=== PATIENT | male | born 1940 | race Caucasian/White ===

== ENCOUNTER 2017-09-25 11:40 | Day surgery (SDC) | payer MEDICARE, BC ==
[2017-09-24 08:17] VITALS: BMI 27.6
[2017-09-25 12:56] LABS: #Eosinphils 0.2 thou/uL (0.0-0.7); #Lymphocytes 0.8 thou/uL (1.20-3.40); #Monocytes 0.5 thou/uL (0.11-0.59); #Neutrophils 4.3 thou/uL (1.40-6.50); %Basophils 0.7 % (0.0-1.0); %Eosinophils 3.1 % (0.0-10.0); %Monocytes 8.1 % (0.0-10.0); Hematocrit 32.4 % (42.0-52.0); Mean Platelet Volume 8.5 fL (7.4-10.4); Red Blood Cell (RBC) Count 3.43 mill/uL (4.70-6.10); White Blood Cell (WBC) Count 5.8 thou/uL (4.8-10.8)
[2017-09-25 13:05] LABS: PTT 38.4 SEC (22.9-36.1)
[2017-09-25 13:18] LABS: Anion Gap 15 mmol/L (10-20); BUN (Urea Nitrogen) 30 mg/dL (8.4-25.7); Calc. Creatinine Clearance 69 mL/min (70-130); Calcium 10.2 mg/dL (7.8-10.44); Carbon Dioxide 22 mmol/L (23-31); Chloride 108 mmol/L (98-107); Estimated GFR-MDRD 64
[2017-09-25] MEDS ORDERED: Diprivan 20 ML ONE (14:02)
--- NOTE | 2017-09-25 14:47 | OP ---
DATE OF PROCEDURE: 09/25/2017 INTERNAL CARDIOVERSION REPORT REASON FOR PROCEDURE: Mr. Dupree is a 77-year-old man with history of CHF and nonischemic cardiomy opathy, biventricular ICD in place, history of atrial flutter, status post ablation in the past, now he is here with atypical atrial flutter and paroxysmal atrial fibrillation sustained since mid b er. He is well anticoagulated with Eliquis. DESCRIPTION OF PROCEDURE: The patient received deep sedation by Anesthesia specialist. After adequa te level of sedation achieved, a synchronized 35 joule internal defibrillator device delivered shock promptly converted the patient back to sinus rhythm. CONCLUSION: Successful cardioversion. PLAN: We will turn atrial ATP therapies on and continue anticoagulation. He has routine postop chec k in 6 weeks.
[2017-09-25] MEDS ORDERED: Propofol 200 MG/20 ML VIAL ONE (16:33)
--- NOTE | 2017-09-25 18:57 | OP ---
DATE OF SERVICE: 09/25/2017 This is an ICD interrogation reprogramming report. REASON FOR PROCEDURE: Mr. Dupree is a 77-year-old man with history of CHF and nonischemic cardiomy opathy, biventricular ICD in place, who underwent an ICD interrogated pre and post-cardioversion and reprogramming is made as below. Interrogation reveals a [employer] Viva XT [employer] biventricular ICD with battery longevity couple of year s, the lead parameters are adequate. The atrial sensing 1.9, RV sensing 6.6 millivolts. Atrial fibr illation seems to be present since mid July. Optimal measurement at baseline, ventricular rates are reasonably controlled. The patient is 89% RV paced. PROCEDURE: The patient received 35 joule shock as dictated separately. Following that, no change in ICD parameters are noted. Reprogramming of the ICD was performed turning atrial tachycardia detection and therapies on ATPs. CONCLUSION: 1. Adequate functioning biventricular ICD pre and post-cardioversion. 2. Atrial antitachycardia pacing therapies program done.
--- NOTE | 2017-09-26 07:31 | EKG ---
Test Reason : Blood Pressure : / mmHG Vent. Rate : 073 BPM Atrial Rate : 075 BPM P-R Int : 000 ms QRS Dur : 144 ms QT Int : 440 ms P-R-T Axes : 000 -15 077 degrees QTc Int : 484 ms Electronic ventricular pacemaker When compared with ECG of 16-AUG-2016 09:02, Vent. rate has decreased BY [address] Kandi HERRON ([id number]) on 09/26/2017 7:30:35 AM Referred By: [facility] Confirmed By:DR. Kandi HERRON
== END 2017-09-25 15:05 | disposition home or self-care (01) ==
LOC: CCL 11:40
PROVIDERS: ATTEND Internal Medicine Cardiovascular Disease
DX: I48.0 Paroxysmal atrial fibrillation (principal); I42.8 Other cardiomyopathies; I48.92 Unspecified atrial flutter; E11.9 Type 2 diabetes mellitus without complications; I50.20 Unspecified systolic (congestive) heart failure; Z79.01 Long term (current) use of anticoagulants; Z79.82 Long term (current) use of aspirin; Z79.84 Long term (current) use of oral hypoglycemic drugs; Z79.899 Other long term (current) drug therapy; Z96.652 Presence of left artificial knee joint; Z96.649 Presence of unspecified artificial hip joint; Z95.810 Presence of automatic (implantable) cardiac defibrillator; Z98.890 Other specified postprocedural states
CPT/HCPCS: 80048; 85025; 85610; 85730; 92960; 93005; 93010; J2704

== ENCOUNTER 2019-02-04 08:03 | Outpatient (CLI) | payer MEDICARE, BC ==
--- NOTE | 2019-02-04 10:23 | CT ---
CT of the abdomen and pelvis with and without IV contrast INDICATION: Recurrent urinary tract infections TECHNIQUE: Noncontrast CT of the abdomen and pelvis was performed. Postcontrast images were obtained in the nephrographic phase and delayed phase. Axial and coronal reformatted images were constructed from the raw data. FINDINGS: ABDOMEN: Liver: There is mild nonspecific intrahepatic biliary duct dilatation. The common bile duct is of nor mal caliber.. Visualized gallbladder appears within normal limits. Pancreas: Normal. Gallbladder: Normal by CT. Adrenal glands: There is a 2.8 cm nonenhancing hyperdense lesion involving the body and medial limb o f the left adrenal gland. There is an eccentric region of macroscopic fat adjacent to this lesion. Findings are suspicious for small myelolipoma that may have bled. Kidneys: There are small bilateral renal cysts. The largest cyst is seen extending exophytically off the superior pole of the right kidney measuring 1.5 cm. No solid renal lesion, hydronephrosis or renal calculus is evident. There are mild renal vascular calcifications bilaterally.. Spleen: Normal. Retroperitoneum: No pathologically enlarged lymph nodes are evident. There are mild vascular calcific ations seen involving the visualized vasculature. There are a few shotty appearing lymph nodes seen along the distal periaortic region and along the aortic bifurcations. The largest lymph node is seen distal to the aorta near the left common iliac artery measuring 8 mm. A few shotty appearing lymph nodes are seen along the iliac vasculature within the pelvis. Pelvis: Bowel: There are scattered diverticula involving the colon without evidence of active diverticulitis. There is normal appendix in the right lower quadrant of the abdomen. The visualized small bowel appears within normal limits. Renal collecting system and bladder: No gross urothelial lesion is identified. The segmentally opacif ied ureters appear within normal limits. No visible intraluminal filling defect is evident within the bladder. Reproductive structures: The prostate is enlarged measuring 5 cm. Rectum and perirectal soft tissues: Normal. 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 There is degenerative levoscoliosis of the lumbar spine. There is scattered degenerative and osteoarthritic change present. IMPRESSION: 1. No solid renal lesion, renal calculus or gross urothelial lesion identified. Bilateral renal cysts . 2. Prostate enlargement. 3. Nonspecific shotty appearing lymph nodes within the pelvis and lower abdomen. This may be reactive related to the patient's history of UTI. 4. Nonenhancing hyperdense lesion involving the left adrenal gland suspicious for adrenal hemorrhage. 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
[2019-02-04] MEDS ORDERED: ISOVUE-370 76%-LOCM 1 ML ONE (10:44)
== END 2019-02-04 08:04 | disposition home or self-care (01) ==
LOC: BICCT 08:03
PROVIDERS: ATTEND Urology
DX: N39.0 Urinary tract infection, site not specified (principal); N28.1 Cyst of kidney, acquired; N40.0 Benign prostatic hyperplasia without lower urinary tract symptoms; E27.9 Disorder of adrenal gland, unspecified
CPT/HCPCS: 74178; 82565; Q9966

== ENCOUNTER 2021-10-20 13:52 | Outpatient (CLI) | payer MEDICARE ==
[2021-10-20 15:58] LABS: Hemoglobin 9.5 g/dL (13.5-17.5); Mean Corpuscular HGB CONC 32.1 g/dL (32.0-36.0); Mean Corpuscular Hemoglobin 33.2 pg (27.0-33.0); Mean Corpuscular Volume 103.5 fl (81.2-95.1); Mean Platelet Volume 10.3 fl (7.4-10.4); Platelet Count 105 10x3/uL (150-450); Red Blood Cell (RBC) Count 2.86 10x6/uL (4.32-5.72); White Blood Cell (WBC) Count 5.8 10x3/uL (3.5-10.5)
[2021-10-20 16:17] LABS: PTT 26.5 sec (22.0-33.0); Prothrombin Time 11.4 sec (9.5-12.1)
[2021-10-20 16:19] LABS: Anion Gap 14 mmol/L (10-20); BUN (Urea Nitrogen) 80 mg/dL (8.4-25.7); Calc. Creatinine Clearance 0 mL/min (70-130); Calcium 9.3 mg/dL (7.8-10.44); Carbon Dioxide 21 mmol/L (23-31); Chloride 111 mmol/L (98-107); Glucose 116 mg/dL (83-110); Potassium 5.7 mmol/L (3.5-5.1); Sodium 140 mmol/L (136-145)
[2021-10-20 23:50] LABS: SARS-CoV-2 PCR by NAA Not Detected (NotDetected)
== END 2021-10-20 13:53 | disposition home or self-care (01) ==
LOC: LABBT 13:52
PROVIDERS: ATTEND Internal Medicine Cardiovascular Disease
DX: Z01.818 Encounter for other preprocedural examination (principal); I47.2 Ventricular tachycardia; Z20.822 Contact with and (suspected) exposure to COVID-19
CPT/HCPCS: 80048; 85027; 85610; 85730; 93005; U0003; U0005; 93010

== ENCOUNTER 2021-10-23 08:03 | Day surgery (SDC) | payer MEDICARE, BC ==
[2021-10-20 10:58] VITALS: BMI 29.3
[2021-10-23] MEDS ORDERED: PROPOFOL 20 ML ONE (11:46)
== END 2021-10-23 12:54 | disposition home or self-care (01) ==
LOC: SDC 08:03
PROVIDERS: ATTEND Internal Medicine Cardiovascular Disease
PROC: 5A2204Z Restoration of Cardiac Rhythm, Single (ICD-10-PCS; principal; 2021-10-23)
DX: I48.19 Other persistent atrial fibrillation (principal); I48.4 Atypical atrial flutter; I42.8 Other cardiomyopathies; I42.0 Dilated cardiomyopathy; I44.7 Left bundle-branch block, unspecified; I47.2 Ventricular tachycardia; E78.5 Hyperlipidemia, unspecified; I12.9 Hypertensive chronic kidney disease with stage 1 through stage 4 chronic kidney disease, or unspecified chronic kidney disease; E11.22 Type 2 diabetes mellitus with diabetic chronic kidney disease; N18.2 Chronic kidney disease, stage 2 (mild); I50.22 Chronic systolic (congestive) heart failure; M19.90 Unspecified osteoarthritis, unspecified site; M10.9 Gout, unspecified; Z79.01 Long term (current) use of anticoagulants; Z79.82 Long term (current) use of aspirin; Z79.84 Long term (current) use of oral hypoglycemic drugs; Z79.899 Other long term (current) drug therapy; Z95.810 Presence of automatic (implantable) cardiac defibrillator
CPT/HCPCS: 92960; 93005; 93010; J2704

== ENCOUNTER 2021-12-29 08:24 | Outpatient (CLI) | payer MEDICARE, BC ==
[2021-12-29] MEDS ORDERED: Iopamidol-370 76% 500 ML 1 ML ONE (12:23)
== END 2021-12-29 08:25 | disposition home or self-care (01) ==
LOC: BICCT 08:24
PROVIDERS: ATTEND Physician Assistant Medical
DX: R74.8 Abnormal levels of other serum enzymes (principal); S37.812A Contusion of adrenal gland, initial encounter; K57.90 Diverticulosis of intestine, part unspecified, without perforation or abscess without bleeding; N28.1 Cyst of kidney, acquired
CPT/HCPCS: 74170; Q9967

== ENCOUNTER 2022-01-24 08:44 | Day surgery (SDC) | payer MEDICARE, BC ==
[2022-01-22 13:58] VITALS: BMI 29.5
[2022-01-24 10:29] LABS: ALT (SGPT) Less than 7 U/L (8-55); AST (SGOT) 14 U/L (5-34); Albumin 4.1 g/dL (3.4-4.8); Alkaline Phosphatase 74 U/L (40-110); Anion Gap 13 mmol/L (10-20); BUN (Urea Nitrogen) 34 mg/dL (8.4-25.7); Bilirubin, Total 0.9 mg/dL (0.2-1.2); Calc. Creatinine Clearance 38 mL/min (70-130); Calcium 9.1 mg/dL (7.8-10.44); Carbon Dioxide 25 mmol/L (23-31); Chloride 107 mmol/L (98-107); Globulin 2.4 g/dL (2.4-3.5); Glucose 171 mg/dL (83-110); Potassium 4.3 mmol/L (3.5-5.1); Protein, Total 6.5 g/dL (5.8-8.1); Sodium 141 mmol/L (136-145)
[2022-01-24] MEDS ORDERED: PROPOFOL 20 ML ONE (13:20)
== END 2022-01-24 15:06 | disposition home or self-care (01) ==
LOC: SDC 08:44
PROVIDERS: ATTEND Internal Medicine Cardiovascular Disease
PROC: B246ZZ4 Ultrasonography of Right and Left Heart, Transesophageal (ICD-10-PCS; principal; 2022-01-24)
PROC: 5A2204Z Restoration of Cardiac Rhythm, Single (ICD-10-PCS; 2022-01-24)
DX: I48.19 Other persistent atrial fibrillation (principal); I42.0 Dilated cardiomyopathy; I34.0 Nonrheumatic mitral (valve) insufficiency; I44.7 Left bundle-branch block, unspecified; I11.0 Hypertensive heart disease with heart failure; I50.22 Chronic systolic (congestive) heart failure; I47.2 Ventricular tachycardia; E11.22 Type 2 diabetes mellitus with diabetic chronic kidney disease; N18.2 Chronic kidney disease, stage 2 (mild); E78.5 Hyperlipidemia, unspecified; M19.90 Unspecified osteoarthritis, unspecified site; I48.3 Typical atrial flutter; M10.9 Gout, unspecified; Z79.01 Long term (current) use of anticoagulants; Z79.82 Long term (current) use of aspirin; Z79.84 Long term (current) use of oral hypoglycemic drugs; Z79.899 Other long term (current) drug therapy; Z95.810 Presence of automatic (implantable) cardiac defibrillator
CPT/HCPCS: 80053; 92960; 93312; J2704

== ENCOUNTER 2023-03-12 08:26 | Inpatient (IN) | payer MEDICARE, BC ==
[2023-03-12 10:09] LABS: Anion Gap 15 mmol/L (10-20); BUN (Urea Nitrogen) 33 mg/dL (8.4-25.7); Calc. Creatinine Clearance 0 mL/min (70-130); Calcium 9.8 mg/dL (7.8-10.44); Carbon Dioxide 25 mmol/L (23-31); Chloride 104 mmol/L (98-107); Estimated GFR 36; Glucose 116 mg/dL (83-110); Potassium 3.7 mmol/L (3.5-5.1); Sodium 140 mmol/L (136-145)
[2023-03-12] MEDS ORDERED: fentaNYL PF 100 MCG/2 ML SYRINGE ONE ×2 (11:58→15:42)
[2023-03-12] MEDS ORDERED: Tobramycin Sulfate 1.2 GM VIAL ONE ×2 (12:06→12:55)
[2023-03-12] MEDS ORDERED: Vancomycin 1 GM VIAL ONE ×2 (12:06→12:55)
[2023-03-12] MEDS ORDERED: Bupivacaine PF 0.5% 30 ML VIAL ONE (12:06)
[2023-03-12] MEDS ORDERED: Albumin 5% 250 ML ONE (12:07)
[2023-03-12] MEDS ORDERED: Sodium Chloride 0.9% 100 ML ONE (12:07)
[2023-03-12] MEDS ORDERED: CEFAZOLIN 2 GM VIAL ONE (12:07)
[2023-03-12] MEDS ORDERED: Vancomycin 1 GM/200 ML (FROZEN) BAG ONE (12:07)
[2023-03-12] MEDS ORDERED: Ropivacaine 0.2% HCl/PF 20 ML ONE (12:07)
[2023-03-12] MEDS ORDERED: Phenylephrine 10 MG/ML VIAL ONE (12:08)
[2023-03-12] MEDS ORDERED: diphenhydrAMINE 50 MG/ML VIAL IVP PRN (12:15)
[2023-03-12] MEDS ORDERED: Naloxone HCl 0.4 mg/ml Vial IVP PRN (12:15)
[2023-03-12] MEDS ORDERED: Promethazine HCl 25 MG/ML VIAL IM PRN ×3 (12:15→15:06)
[2023-03-12] MEDS ORDERED: Bupivacaine 0.25% 10 ML VIAL EPIDURAL PRN (12:15)
[2023-03-12] MEDS ORDERED: Ondansetron PF 4 MG/2 ML Vial IVP PRN ×2 (12:15→14:47)
[2023-03-12] MEDS ORDERED: diphenhydrAMINE 50 MG/ML VIAL IM PRN (12:15)
[2023-03-12] MEDS ORDERED: HYDROcodone/Acetaminophen 5/325 mg Tablet PO PRN (12:15)
[2023-03-12] MEDS ORDERED: Zolpidem Tartrate 5 MG TAB PO PRN ×2 (12:15→14:47)
[2023-03-12] MEDS ORDERED: Moisturizing Cream (Eucerin) 113 GM JAR TOP PRN (12:15)
[2023-03-12] MEDS ORDERED: traMADol HCl 50 MG TAB PO PRN ×2 (12:15)
[2023-03-12] MEDS ORDERED: Naloxone HCl 0.4 mg/ml Vial IV PRN (12:15)
[2023-03-12] MEDS ORDERED: Rocuronium Bromide 10 MG/ML (10ML VIAL) ONE (12:19)
[2023-03-12] MEDS ORDERED: Lidocaine 1% PF 5 ML VIAL ONE (12:19)
[2023-03-12] MEDS ORDERED: Lidocaine 1.5% w/Epi 1:200K 30 ML VIAL (Epid Use) ONE (12:19)
[2023-03-12] MEDS ORDERED: Dexamethasone 20 MG/5 ML VIAL ONE (12:19)
[2023-03-12] MEDS ORDERED: Ondansetron PF 4 MG/2 ML Vial ONE (12:19)
[2023-03-12] MEDS ORDERED: SUGAMMADEX SODIUM 200 MG/2 ML VIAL ONE (12:53)
[2023-03-12] MEDS ORDERED: Tranexamic Acid 1,000 MG/10 ML VIAL ONE (12:55)
[2023-03-12] MEDS ORDERED: cefTRIAXone (ROCEPHIN) 1 GM VIAL ONE (12:55)
[2023-03-12] MEDS ORDERED: Vancomycin HCl 500 MG VIAL ONE ×2 (12:58)
[2023-03-12] MEDS ORDERED: Acetaminophen 325 MG TAB PO PRN (14:47)
[2023-03-12] MEDS ORDERED: diphenhydrAMINE 25 MG CAP PO PRN (14:47)
[2023-03-12] MEDS ORDERED: Ondansetron HCl/PF 4 MG/2 ML Vial IVP PRN (15:06)
[2023-03-12] MEDS ORDERED: Morphine Sulfate 2 MG/ML SYRINGE SLOW IVP PRN (15:06)
[2023-03-12] MEDS ORDERED: fentaNYL 50 mcg/mL 1 mL Vial ONE (17:32)
[2023-03-12] MEDS: Sodium Chloride 0.9% 1,000 ML IV SCH (19:42)
[2023-03-12 19:45] VITALS: BMI 25.0
[2023-03-12] MEDS: Aspirin 81 mg Enteric Coated Tablet PO SCH (19:50)
[2023-03-12] MEDS ORDERED: Dextrose 50% Abboject 50 ML SYRINGE SLOW IVP PRN (20:35)
[2023-03-12] MEDS ORDERED: Dextrose 5% in Water 1,000 ML IV PRN (20:35)
[2023-03-12] MEDS ORDERED: Glucagon 1 MG/ML KIT IM PRN (20:35)
[2023-03-12] MEDS ORDERED: HumaLOG 300 UNITS/3 ML VIAL SC PRN ×2 (20:35)
[2023-03-12] MEDS ORDERED: Ondansetron PF 4 MG/2 ML Vial IVP SCH (20:45)
[2023-03-12 21:31] LABS: #Eosinphils 0.1 thou/uL (0.0-0.7); #Monocytes 0.6 thou/uL (0.11-0.59); #Neutrophils 6.6 thou/uL (1.40-6.50); %Basophils 0.3 % (0.0-1.0); %Eosinophils 1.1 % (0.0-10.0); %Lymphocytes 6.4 % (21.0-51.0); %Monocytes 8.1 % (0.0-10.0); %Neutrophils 83.5 % (42.0-75.0); Hemoglobin 9.4 g/dL (14.0-18.0); Mean Corpuscular HGB CONC 32.3 g/dL (32.0-36.0); Mean Corpuscular Hemoglobin 30.7 pg (27.0-31.0); Mean Corpuscular Volume 95.1 fl (78.0-98.0); Mean Platelet Volume 11.2 fL (7.4-10.4); RBC Distribution Width 18.6 % (11.5-14.5); Red Blood Cell (RBC) Count 3.06 mill/uL (4.70-6.10); White Blood Cell (WBC) Count 7.9 10x3/uL (4.8-10.8)
[2023-03-12 21:46] LABS: Platelet Count 112 10x3/uL (130-400)
[2023-03-12 21:53] LABS: ALT (SGPT) 7 U/L (8-55); AST (SGOT) 17 U/L (5-34); Albumin 3.2 g/dL (3.4-4.8); Alkaline Phosphatase 61 U/L (40-110); Anion Gap 14 mmol/L (10-20); BUN (Urea Nitrogen) 29 mg/dL (8.4-25.7); Bilirubin, Total 1.4 mg/dL (0.2-1.2); Calc. Creatinine Clearance 42 mL/min (70-130); Calcium 8.7 mg/dL (7.8-10.44); Carbon Dioxide 23 mmol/L (23-31); Chloride 106 mmol/L (98-107); Estimated GFR 45; Globulin 2.2 g/dL (2.4-3.5); Glucose 180 mg/dL (83-110); Potassium 3.8 mmol/L (3.5-5.1); Protein, Total 5.4 g/dL (5.8-8.1); Sodium 139 mmol/L (136-145)
[2023-03-12 21:58] LABS: Magnesium 0.9 mg/dL (1.6-2.6)
[2023-03-12] MEDS ORDERED: Electrolyte Replacement Protocol 1 EACH FS SCH (22:15)
[2023-03-12] MEDS ORDERED: Magnesium Sulfate In Water 4 GM in Premix Bag 1 BAG IVPB SCH (22:30)
[2023-03-13] MEDS: Sodium Chloride 0.9% 1,000 ML IV SCH ×3 (01:20→19:21)
[2023-03-13] MEDS: Fentanyl/Bupivacaine 100 ML EPIDURAL SCH ×2 (05:32→20:07)
[2023-03-13 06:11] LABS: Hemoglobin 8.7 g/dL (14.0-18.0); Mean Corpuscular HGB CONC 32.2 g/dL (32.0-36.0); Mean Corpuscular Hemoglobin 30.7 pg (27.0-31.0); Mean Corpuscular Volume 95.4 fl (78.0-98.0); Mean Platelet Volume 10.2 fL (7.4-10.4); Platelet Count 102 10x3/uL (130-400); RBC Distribution Width 18.8 % (11.5-14.5); Red Blood Cell (RBC) Count 2.83 mill/uL (4.70-6.10); White Blood Cell (WBC) Count 8.3 10x3/uL (4.8-10.8)
[2023-03-13 06:37] LABS: Anion Gap 12 mmol/L (10-20); BUN (Urea Nitrogen) 31 mg/dL (8.4-25.7); Calc. Creatinine Clearance 37 mL/min (70-130); Calcium 8.5 mg/dL (7.8-10.44); Carbon Dioxide 22 mmol/L (23-31); Chloride 107 mmol/L (98-107); Estimated GFR 39; Glucose 163 mg/dL (83-110); Magnesium 2.3 mg/dL (1.6-2.6); Potassium 3.9 mmol/L (3.5-5.1); Sodium 137 mmol/L (136-145)
[2023-03-13] MEDS: Senokot S 8.6-50 MG TAB PO SCH ×2 (09:34→20:16)
[2023-03-13] MEDS: Aspirin 81 mg Enteric Coated Tablet PO SCH ×2 (09:34→20:16)
[2023-03-13] MEDS: Ferrous Gluconate 324 MG TAB PO SCH ×2 (09:35→20:16)
[2023-03-13] MEDS: Multivitamin W/ Minerals 1 TAB PO SCH (09:35)
[2023-03-13] MEDS ORDERED: Vancomycin HCl 1 GM in Sodium Chloride 0.9% 250 ML 250 ML IVPB SCH (12:35)
[2023-03-13] MEDS: cefTRIAXone\\ROCEPHIN 2 GM in Sodium Chloride 0.9% 100 ML IVPB SCH (13:47)
[2023-03-13] MEDS: Vancomycin HCl 750 MG in Sodium Chloride 0.9% 250 ML 250 ML IVPB SCH (16:09)
[2023-03-13] MEDS: Simvastatin 10 MG TAB PO SCH (20:16)
[2023-03-13] MEDS: HYDROcodone/Acetaminophen 5/325 mg Tablet PO PRN (20:17)
[2023-03-14 05:47] LABS: Hemoglobin 8.7 g/dL (14.0-18.0); Mean Corpuscular HGB CONC 32.7 g/dL (32.0-36.0); Mean Corpuscular Volume 94.7 fl (78.0-98.0); Mean Platelet Volume 10.8 fL (7.4-10.4); Platelet Count 99 10x3/uL (130-400); RBC Distribution Width 18.3 % (11.5-14.5); Red Blood Cell (RBC) Count 2.81 mill/uL (4.70-6.10); White Blood Cell (WBC) Count 8.1 10x3/uL (4.8-10.8)
[2023-03-14] MEDS: Sodium Chloride 0.9% 1,000 ML IV SCH ×2 (05:52→20:34)
[2023-03-14] MEDS: Levothyroxine Sodium 25 MCG TAB PO SCH (05:54)
[2023-03-14 06:09] LABS: Anion Gap 9 mmol/L (10-20); BUN (Urea Nitrogen) 33 mg/dL (8.4-25.7); Calc. Creatinine Clearance 36 mL/min (70-130); Calcium 8.7 mg/dL (7.8-10.44); Carbon Dioxide 22 mmol/L (23-31); Chloride 104 mmol/L (98-107); Estimated GFR 38; Glucose 160 mg/dL (83-110); Potassium 3.2 mmol/L (3.5-5.1); Sodium 132 mmol/L (136-145)
[2023-03-14] MEDS ORDERED: Potassium Chloride 20 MEQ TAB PO SCH (06:15)
[2023-03-14] MEDS: HYDROcodone/Acetaminophen 5/325 mg Tablet PO PRN (06:38)
[2023-03-14] MEDS ORDERED: glipiZIDE 5 MG TAB PO SCH (07:30)
[2023-03-14] MEDS: Senokot S 8.6-50 MG TAB PO SCH ×2 (08:59→20:34)
[2023-03-14] MEDS: Ferrous Gluconate 324 MG TAB PO SCH ×2 (08:59→20:35)
[2023-03-14] MEDS: Multivitamin W/ Minerals 1 TAB PO SCH (08:59)
[2023-03-14] MEDS: Aspirin 81 mg Enteric Coated Tablet PO SCH ×2 (08:59→20:34)
[2023-03-14] MEDS ORDERED: Ferrous Sulfate 325 MG TAB PO SCH (09:00)
[2023-03-14] MEDS ORDERED: fentaNYL 50 mcg/mL 1 mL Vial SLOW IVP PRN (10:11)
[2023-03-14] MEDS: HYDROcodone/Acetaminophen 7.5/325 mg Tablet PO PRN ×2 (10:54→16:13)
[2023-03-14] MEDS: cefTRIAXone\\ROCEPHIN 2 GM in Sodium Chloride 0.9% 100 ML IVPB SCH (13:19)
[2023-03-14] MEDS ORDERED: VANCOMYCIN 1.25 GM/250 ML BAG 1.25 GM in Premix Bag 1 BAG IVPB SCH (14:00)
[2023-03-14] MEDS: Vancomycin HCl 750 MG in Sodium Chloride 0.9% 250 ML 250 ML IVPB SCH (14:46)
[2023-03-14 14:58] LABS: Vancomycin, Trough 10.1 ug/mL
[2023-03-14] MEDS: Simvastatin 10 MG TAB PO SCH (20:34)
[2023-03-15] MEDS: HYDROcodone/Acetaminophen 7.5/325 mg Tablet PO PRN ×2 (04:21→13:15)
[2023-03-15 05:29] LABS: Mean Corpuscular Volume 94.9 fl (78.0-98.0); Platelet Count 100 10x3/uL (130-400); Red Blood Cell (RBC) Count 2.74 mill/uL (4.70-6.10)
[2023-03-15 05:30] LABS: Hemoglobin 8.4 g/dL (14.0-18.0); Mean Corpuscular HGB CONC 32.3 g/dL (32.0-36.0); Mean Corpuscular Hemoglobin 30.7 pg (27.0-31.0); Mean Platelet Volume 10.2 fL (7.4-10.4); White Blood Cell (WBC) Count 8.4 10x3/uL (4.8-10.8)
[2023-03-15 05:55] LABS: Anion Gap 12 mmol/L (10-20); BUN (Urea Nitrogen) 39 mg/dL (8.4-25.7); Calc. Creatinine Clearance 33 mL/min (70-130); Calcium 8.7 mg/dL (7.8-10.44); Carbon Dioxide 19 mmol/L (23-31); Chloride 104 mmol/L (98-107); Estimated GFR 34; Glucose 124 mg/dL (83-110); Potassium 3.9 mmol/L (3.5-5.1); Sodium 131 mmol/L (136-145)
[2023-03-15] MEDS: Sodium Chloride 0.9% 1,000 ML IV SCH ×3 (06:17→21:30)
[2023-03-15] MEDS: Levothyroxine Sodium 25 MCG TAB PO SCH (06:17)
[2023-03-15] MEDS: Ferrous Gluconate 324 MG TAB PO SCH ×2 (09:12→20:52)
[2023-03-15] MEDS: Senokot S 8.6-50 MG TAB PO SCH ×2 (09:12→20:52)
[2023-03-15] MEDS: Multivitamin W/ Minerals 1 TAB PO SCH (09:12)
[2023-03-15] MEDS ORDERED: Metoclopramide HCl 10 MG/2 ML VIAL IVP PRN (11:58)
[2023-03-15] MEDS ORDERED: Metoclopramide HCl 10 MG/2 ML VIAL IVP SCH (12:00)
[2023-03-15] MEDS ORDERED: Magnesium Citrate 300 ML BOT PO SCH (12:00)
[2023-03-15] MEDS: DAPTOmycin 500 MG in Sodium Chloride 0.9% 50 ML IVPB SCH (12:29)
[2023-03-15] MEDS: Aspirin 81 mg Enteric Coated Tablet PO SCH ×2 (12:30→20:52)
[2023-03-15] MEDS: cefTRIAXone\\ROCEPHIN 2 GM in Sodium Chloride 0.9% 100 ML IVPB SCH (12:33)
[2023-03-15] MEDS ORDERED: Vancomycin 1 GM in Premix Bag 1 BAG IVPB SCH (15:00)
[2023-03-15] MEDS ORDERED: Mineral Oil ENEMA PR SCH (17:15)
[2023-03-15] MEDS ORDERED: Naloxegol 12.5 MG TAB PO SCH (17:15)
[2023-03-15] MEDS: Simvastatin 10 MG TAB PO SCH (20:53)
[2023-03-16] MEDS: Levothyroxine Sodium 25 MCG TAB PO SCH (05:56)
[2023-03-16 06:08] LABS: White Blood Cell (WBC) Count 7.5 10x3/uL (4.8-10.8)
[2023-03-16 06:09] LABS: Hemoglobin 8.5 g/dL (14.0-18.0); Mean Corpuscular Hemoglobin 30.7 pg (27.0-31.0); Mean Platelet Volume 11.2 fL (7.4-10.4); Platelet Count 118 10x3/uL (130-400); RBC Distribution Width 17.9 % (11.5-14.5); Red Blood Cell (RBC) Count 2.77 mill/uL (4.70-6.10)
[2023-03-16 06:30] LABS: Anion Gap 11 mmol/L (10-20); BUN (Urea Nitrogen) 32 mg/dL (8.4-25.7); CK (CPK) 182 U/L (30-200); Calc. Creatinine Clearance 38 mL/min (70-130); Calcium 9.2 mg/dL (7.8-10.44); Carbon Dioxide 23 mmol/L (23-31); Chloride 107 mmol/L (98-107); Estimated GFR 40; Glucose 109 mg/dL (83-110); Potassium 3.8 mmol/L (3.5-5.1); Sodium 137 mmol/L (136-145)
[2023-03-16] MEDS: Sodium Chloride 0.9% 1,000 ML IV SCH ×2 (08:31→13:47)
[2023-03-16] MEDS: Lisinopril 5 MG TAB PO SCH (08:32)
[2023-03-16] MEDS ORDERED: MD-Gastroview 120 ML BOT ONE (08:47)
[2023-03-16] MEDS: Aspirin 81 mg Enteric Coated Tablet PO SCH (08:55)
[2023-03-16] MEDS: Senokot S 8.6-50 MG TAB PO SCH (08:55)
[2023-03-16] MEDS: Ferrous Gluconate 324 MG TAB PO SCH (08:55)
[2023-03-16] MEDS: Multivitamin W/ Minerals 1 TAB PO SCH (08:55)
[2023-03-16] MEDS: DAPTOmycin 500 MG in Sodium Chloride 0.9% 50 ML IVPB SCH (11:18)
[2023-03-16] MEDS: cefTRIAXone\\ROCEPHIN 2 GM in Sodium Chloride 0.9% 100 ML IVPB SCH (12:48)
[2023-03-16] MEDS: HYDROcodone/Acetaminophen 7.5/325 mg Tablet PO PRN (16:36)
[2023-03-16 22:52] LABS: Hemoglobin 9.1 g/dL (14.0-18.0)
[2023-03-17] MEDS: Sodium Chloride 0.9% 1,000 ML IV SCH ×2 (00:25→13:56)
[2023-03-17] MEDS: Aspirin 81 mg Enteric Coated Tablet PO SCH ×3 (04:01→22:22)
[2023-03-17] MEDS: Simvastatin 10 MG TAB PO SCH ×2 (04:01→22:22)
[2023-03-17] MEDS: Senokot S 8.6-50 MG TAB PO SCH ×3 (04:01→22:22)
[2023-03-17] MEDS: Ferrous Gluconate 324 MG TAB PO SCH ×3 (04:01→22:22)
[2023-03-17] MEDS: Levothyroxine Sodium 25 MCG TAB PO SCH (06:26)
[2023-03-17 08:48] LABS: Hemoglobin 8.6 g/dL (14.0-18.0); Mean Corpuscular Volume 97.1 fl (78.0-98.0); Mean Platelet Volume 10.5 fL (7.4-10.4); Platelet Count 122 10x3/uL (130-400); RBC Distribution Width 17.9 % (11.5-14.5); Red Blood Cell (RBC) Count 2.77 mill/uL (4.70-6.10); White Blood Cell (WBC) Count 10.9 10x3/uL (4.8-10.8)
[2023-03-17] MEDS: Lisinopril 5 MG TAB PO SCH (10:16)
[2023-03-17] MEDS: Multivitamin W/ Minerals 1 TAB PO SCH (10:16)
[2023-03-17] MEDS: cefTRIAXone\\ROCEPHIN 2 GM in Sodium Chloride 0.9% 100 ML IVPB SCH (13:56)
[2023-03-18] MEDS: Sodium Chloride 0.9% 1,000 ML IV SCH ×2 (04:27→17:12)
[2023-03-18] MEDS: Levothyroxine Sodium 25 MCG TAB PO SCH (06:05)
[2023-03-18 06:27] LABS: Hemoglobin 7.1 g/dL (14.0-18.0); Mean Corpuscular HGB CONC 31.4 g/dL (32.0-36.0); Mean Corpuscular Hemoglobin 30.6 pg (27.0-31.0); Mean Corpuscular Volume 97.4 fl (78.0-98.0); Mean Platelet Volume 10.5 fL (7.4-10.4); Platelet Count 125 10x3/uL (130-400); RBC Distribution Width 18.1 % (11.5-14.5); Red Blood Cell (RBC) Count 2.32 mill/uL (4.70-6.10); White Blood Cell (WBC) Count 6.3 10x3/uL (4.8-10.8)
[2023-03-18 06:48] LABS: Anion Gap 16 mmol/L (10-20); BUN (Urea Nitrogen) 32 mg/dL (8.4-25.7); Calc. Creatinine Clearance 48 mL/min (70-130); Calcium 8.5 mg/dL (7.8-10.44); Carbon Dioxide 19 mmol/L (23-31); Chloride 112 mmol/L (98-107); Estimated GFR 54; Glucose 95 mg/dL (83-110); Potassium 3.5 mmol/L (3.5-5.1); Sodium 143 mmol/L (136-145)
[2023-03-18 07:11] LABS: #Monocytes 0.3 thou/uL (0.11-0.59); %Basophils 0.2 % (0.0-1.0); %Eosinophils 0.3 % (0.0-10.0); %Lymphocytes 9.1 % (21.0-51.0); %Monocytes 5.6 % (0.0-10.0); %Neutrophils 84.3 % (42.0-75.0); Hemoglobin 7.7 g/dL (14.0-18.0); Mean Corpuscular HGB CONC 31.2 g/dL (32.0-36.0); Mean Corpuscular Hemoglobin 30.4 pg (27.0-31.0); Mean Corpuscular Volume 97.6 fl (78.0-98.0); Mean Platelet Volume 10.9 fL (7.4-10.4); Platelet Count 120 10x3/uL (130-400); Red Blood Cell (RBC) Count 2.53 mill/uL (4.70-6.10); White Blood Cell (WBC) Count 5.9 10x3/uL (4.8-10.8)
[2023-03-18] MEDS ORDERED: Potassium Chloride 20 MEQ TAB PO SCH (08:00)
[2023-03-18] MEDS: Lisinopril 5 MG TAB PO SCH (08:34)
[2023-03-18] MEDS: Senokot S 8.6-50 MG TAB PO SCH ×2 (12:15→20:35)
[2023-03-18] MEDS: Aspirin 81 mg Enteric Coated Tablet PO SCH ×2 (12:15→20:34)
[2023-03-18] MEDS: Ferrous Gluconate 324 MG TAB PO SCH ×2 (12:15→20:35)
[2023-03-18] MEDS: Multivitamin W/ Minerals 1 TAB PO SCH (12:15)
[2023-03-18] MEDS: cefTRIAXone\\ROCEPHIN 2 GM in Sodium Chloride 0.9% 100 ML IVPB SCH (14:35)
[2023-03-18] MEDS: Simvastatin 10 MG TAB PO SCH (20:35)
[2023-03-19] MEDS: Sodium Chloride 0.9% 1,000 ML IV SCH ×2 (06:33→15:08)
[2023-03-19] MEDS: Levothyroxine Sodium 25 MCG TAB PO SCH (06:34)
[2023-03-19 07:23] LABS: Hemoglobin 7.6 g/dL (14.0-18.0); Mean Corpuscular HGB CONC 31.7 g/dL (32.0-36.0); Mean Corpuscular Hemoglobin 30.9 pg (27.0-31.0); Mean Corpuscular Volume 97.6 fl (78.0-98.0); Mean Platelet Volume 10.5 fL (7.4-10.4); Platelet Count 123 10x3/uL (130-400); RBC Distribution Width 17.5 % (11.5-14.5); Red Blood Cell (RBC) Count 2.46 mill/uL (4.70-6.10); White Blood Cell (WBC) Count 6.1 10x3/uL (4.8-10.8)
[2023-03-19] MEDS: Aspirin 81 mg Enteric Coated Tablet PO SCH (08:33)
[2023-03-19] MEDS: Ferrous Gluconate 324 MG TAB PO SCH (08:33)
[2023-03-19] MEDS: Lisinopril 5 MG TAB PO SCH (08:33)
[2023-03-19] MEDS: Multivitamin W/ Minerals 1 TAB PO SCH (08:34)
[2023-03-19] MEDS: Senokot S 8.6-50 MG TAB PO SCH (08:34)
[2023-03-19] MEDS: cefTRIAXone\\ROCEPHIN 2 GM in Sodium Chloride 0.9% 100 ML IVPB SCH (12:06)
[2023-03-19 13:57] VITALS: BP 127/64; TEMP 97.6
== END 2023-03-19 14:35 | DRG 467 ==
LOC: SURG A 08:26
PROVIDERS: ADMIT Orthopaedic Surgery; ATTEND Orthopaedic Surgery
PROC: 0SR9029 Replacement of Right Hip Joint with Metal on Polyethylene Synthetic Substitute, Cemented, Open Approach (ICD-10-PCS; 2023-03-12)
PROC: 0SP90JZ Removal of Synthetic Substitute from Right Hip Joint, Open Approach (ICD-10-PCS; 2023-03-12)
PROC: 30233N1 Transfusion of Nonautologous Red Blood Cells into Peripheral Vein, Percutaneous Approach (ICD-10-PCS; 2023-03-12)
PROC: 30233J1 Transfusion of Nonautologous Serum Albumin into Peripheral Vein, Percutaneous Approach (ICD-10-PCS; 2023-03-12)
PROC: 02HV33Z Insertion of Infusion Device into Superior Vena Cava, Percutaneous Approach (ICD-10-PCS; 2023-03-15)
PROC: B5181ZA Fluoroscopy of Superior Vena Cava using Low Osmolar Contrast, Guidance (ICD-10-PCS; 2023-03-15)
PROC: 0D9670Z Drainage of Stomach with Drainage Device, Via Natural or Artificial Opening (ICD-10-PCS; principal; 2023-03-16)
DX: T84.51XA Infection and inflammatory reaction due to internal right hip prosthesis, initial encounter (principal); I42.8 Other cardiomyopathies; K56.609 Unspecified intestinal obstruction, unspecified as to partial versus complete obstruction; I48.20 Chronic atrial fibrillation, unspecified; N18.4 Chronic kidney disease, stage 4 (severe); N17.9 Acute kidney failure, unspecified; K91.89 Other postprocedural complications and disorders of digestive system; K56.7 Ileus, unspecified; E78.5 Hyperlipidemia, unspecified; I48.91 Unspecified atrial fibrillation; I25.10 Atherosclerotic heart disease of native coronary artery without angina pectoris; D69.6 Thrombocytopenia, unspecified; Z96.652 Presence of left artificial knee joint; E11.40 Type 2 diabetes mellitus with diabetic neuropathy, unspecified; E11.22 Type 2 diabetes mellitus with diabetic chronic kidney disease; I12.9 Hypertensive chronic kidney disease with stage 1 through stage 4 chronic kidney disease, or unspecified chronic kidney disease; I50.9 Heart failure, unspecified; D63.1 Anemia in chronic kidney disease; E03.9 Hypothyroidism, unspecified; K59.00 Constipation, unspecified; Z95.810 Presence of automatic (implantable) cardiac defibrillator; Z98.890 Other specified postprocedural states; Z98.49 Cataract extraction status, unspecified eye; Z82.49 Family history of ischemic heart disease and other diseases of the circulatory system; Z79.890 Hormone replacement therapy; Z79.84 Long term (current) use of oral hypoglycemic drugs
CPT/HCPCS: 36415; 36416; 36430; 36569; 72170; 74018; 74250; 80048; 80202; 82550; 83036; 83735; 83880; 85025; 85027; 85652; 86140; 86850; 86900; 86901; 87070; 87077; 87081; 87186; 87205; 93970; 97139; C1751; C1776; C1889; J0696; J0878; J1100; J2001; J2370; J2405; J2795; J3010; J3260; J3370; J3370-JW; J3475; J3490; J7050; P9016; P9045; Q9963; S0020